=== PATIENT | female | born 1960 | race Caucasian/White ===

== ENCOUNTER → 2017-09-26 | Outpatient (CLI) | payer BC ==
[2017-09-26 15:22] LABS: ALT 78 U/L (9-52); AST 56 U/L (14-36); Albumin 3.9 g/dL (3.5-5.0); Alkaline Phosphatase 163 U/L (38-126); Anion Gap 10 mmol/L; Blood Urea Nitrogen 16 mg/dL (7-17); Calcium 9.4 mg/dL (8.4-10.2); Carbon Dioxide 25 mmol/L (22-30); Chloride 107 mmol/L (98-107); Cholesterol 208 mg/dL (<200); Creatine Kinase 88 U/L (30-135); Glucose 92 mg/dL (74-99); HDL Cholesterol 57 mg/dL (40-60); LDL Cholesterol,Calculated 128 mg/dL (0-99); Magnesium 2.1 mg/dL (1.6-2.3); Potassium 3.5 mmol/L (3.5-5.1); Sodium 142 mmol/L (137-145); Total Bilirubin 0.9 mg/dL (0.2-1.3); Total Protein 6.7 g/dL (6.3-8.2); Triglycerides 115 mg/dL (<150); Uric Acid 7.3 mg/dL (3.7-7.4)
[2017-09-26 15:38] LABS: T4, Free (Free Thyroxine) 1.28 ng/dL (0.78-2.19)
[2017-09-26 19:12] LABS: Vitamin D 25 Hydroxy 31.8 ng/mL (30.0-100.0)
[2017-09-27 12:39] LABS: Zinc, Serum 78 ug/dL (60-130)
[2017-09-28 02:27] LABS: Vitamin B1 71 ug/L (38-122)
== END ==
LOC: LABWHC1 14:47
PROVIDERS: ATTEND Family Medicine
DX: M25.571 Pain in right ankle and joints of right foot (principal); E53.9 Vitamin B deficiency, unspecified; Z98.84 Bariatric surgery status
CPT/HCPCS: 36415; 80053; 80061; 82306; 82550; 82607; 83735; 84134; 84425; 84439; 84443; 84550; 84630

== ENCOUNTER → 2017-10-10 | Outpatient (CLI) | payer BC ==
--- NOTE | 2017-10-10 23:19 | MR ---
EXAMINATION TYPE: MR foot RT wo con DATE OF EXAM: 10/10/2017 COMPARISON: NONE HISTORY: Rt foot/ankle pain, hx of injury 2 years ago Standard multiplanar, multisequence MRI departmental protocol Multiplanar, multisequence images of the right foot were acquired. FINDINGS: There is metal artifact from surgery apparently at the distal tibia and fibula. This obscur es the detail to some extent at the ankle. The metatarsals appear intact. I see no focal bone destruction involving the metatarsals. The toes ap pear intact. There is no subluxation. There is no sign of a soft tissue mass. The plantar fascia appe ars normal. The Achilles tendon appears normal. There is some spurring at the second tarsometatarsal joint. There is mild spurring at the talonavicular joint. The subtalar joint appears normal. The medi al and lateral flexor tendons of the ankle and foot appear to be intact. IMPRESSION: No fracture seen. Artifact at the ankle. Mild osteoarthritic changes in the midfoot as above.
== END | disposition home or self-care (01) ==
LOC: RADMRIMAIN 19:49
PROVIDERS: ATTEND Family Medicine
DX: M19.071 Primary osteoarthritis, right ankle and foot (principal); T84.218A Breakdown (mechanical) of internal fixation device of other bones, initial encounter

== ENCOUNTER → 2017-10-17 | Outpatient (CLI) | payer BC ==
--- NOTE | 2017-10-17 18:44 | MR ---
Right ankle MRI HISTORY: Pain Multiplanar multisequence imaging through the right ankle correlated to right foot MRI 10/09/2017 The susceptibility artifact due to patient's hardware in the ankle may limit sensitivity. Plantar apo neurosis, Achilles tendon are intact. Some mild degenerative changes are noted in the midfoot as prev iously described. Peroneal longus and brevis tendons are intact. Subcutaneous edema changes are prese nt. No evident pathologic marrow edema. Flexor and extensor tendons. To be intact. No evident effusio n. IMPRESSION: There is artifact due to patient's prior surgery at the ankle joint. Arthropathy noted in the midfoot. Subcutaneous edema. Exam is limited.
== END | disposition home or self-care (01) ==
LOC: RADMRIMAIN 10:00
PROVIDERS: ATTEND Family Medicine
DX: M12.871 Other specific arthropathies, not elsewhere classified, right ankle and foot (principal); Z98.890 Other specified postprocedural states

== ENCOUNTER 2018-05-01 09:02 | Day surgery (SDC) | payer BC ==
[2018-04-29 16:21] VITALS: BMI 44.8
[~2018-05-01 09:02] MED LIST: LACTATED RINGERS 1,000 ML IV SCH; LIDOCAINE 1% 20 ML VIAL (10MG/ML) FOR IV START INTRADERMA PRN; MIDAZOLAM 2 MG/2 ML VIAL IV PRN
[2018-05-01 09:30] VITALS: TEMP 97.8
[2018-05-01 09:30] LABS: Glucose,Whole Blood 90 mg/dL (75-99)
[2018-05-01] MEDS ORDERED: PROPOFOL 10 MG/ML 20 ML VIAL IV ONE (10:00)
[2018-05-01] MEDS ORDERED: LIDOCAINE 1% INJ 10MG/ML (20 ML MDV) ONE (10:00)
--- NOTE | 2018-05-01 10:37 | P.PCN ---
Date of Procedure: 05/01/18 Procedure(s) Performed: Brief history: Patient is a pleasant 57-year-old white female, scheduled for an elective upper endoscopy as well as colonoscopy as a part of evaluation of intermittent dysphagia to solids/long-standing history of GERD. She also scheduled for colonoscopy for screening for colorectal neoplasia. Procedure performed: Esophagogastroduodenoscopy with biopsy Colonoscopy with snare polypectomy and hot biopsy Preoperative diagnosis: GERD/intermittent dysphagia Screening for colon cancer Anesthesia: MAC Procedure: After informed consent was obtained from the patient was brought into the endoscopy unit and IV sedation was administered by anesthesia under continuous monitoring. Initially upper endoscopy was done. The Olympus GF 160 video endoscope was inserted inserted into the mouth and esophagus intubated without any difficulty and was gradually advanced into the stomach and duodenum and carefully examined. The bulb and second part of the duodenum appeared normal. The scope was then withdrawn into the stomach adequately insufflated with air and upon careful examination the antrum had mild gastritis and biopsies were done from this area. The body, cardia and fundus appeared normal. there was evidence of gastric sleeve surgery noted. The scope was then withdrawn into the esophagus. The GE junction was located at 34 cm to the incisors. It appeared regular with no erythema erosions or ulcerations. Rest of the esophagus appeared normal. biopsies were done from the distal esophagus.Patient tolerated the procedure well. At this time the patient continued to remain sedation. Initial digital rectal examination was normal. Olympus CF 160 video colonoscope was then inserted into the rectum and gradually advanced to the cecum without any difficulty. Careful examination was performed as the scope was gradually being withdrawn. The prep was fair. The cecum, ascending colon, appeared normal. In the transverse colon there was a 1 segment of broad-based polyp that was removed by snare polypectomy. Adjacent to this area there was another 1 cm flat polyp that could not be removed by snare polypectomy. Multiple attempts. Instead removed with hot biopsy. Rest of the transverse colon, descending colon, sigmoid colon and rectum appeared normal. Retroflexion was performed in the rectum and no lesions were noted. Patient tolerated the procedure well. Impression: 1. Upper endoscopy revealed evidence of gastric sleeve surgery, mild antral gastritis but no evidence of esophageal stricture 2. Colonoscopy revealed 1 cm broad-based polyp in the transverse colon status post snare polypectomy and another 1 cm flat polyp status post removal with hot biopsy. Recommendations: Findings of this examination were discussed with the patient as well as her family. She was advised to follow with the biopsy results. If the biopsy of the colon polyps are tubular adenoma, she can have a repeat colonoscopy in 3 years.
[2018-05-01 10:46] VITALS: RESP 18
[2018-05-01 11:08] VITALS: BP 129/80; PULSE 56
== END 2018-05-01 12:05 | disposition home or self-care (01) ==
LOC: ORWHC2ENDO 09:02
PROVIDERS: ATTEND Internal Medicine Gastroenterology
DX: Z12.11 Encounter for screening for malignant neoplasm of colon (principal); K21.9 Gastro-esophageal reflux disease without esophagitis; K29.70 Gastritis, unspecified, without bleeding; K63.5 Polyp of colon; G47.33 Obstructive sleep apnea (adult) (pediatric); Z79.899 Other long term (current) drug therapy; Z88.1 Allergy status to other antibiotic agents; Z79.01 Long term (current) use of anticoagulants
CPT/HCPCS: 88305; 45384; 45385; 43239; J2001; J2704

== ENCOUNTER → 2018-06-26 | Outpatient (CLI) | payer BC ==
--- NOTE | 2018-06-30 07:03 | MM ---
Reason for exam: screening (asymptomatic). Last mammogram was performed 3 years and 6 months ago. History: Family history of breast cancer in maternal grandmother. Physical Findings: A clinical breast exam by your physician is recommended on an annual basis and results should be correlated with mammographic findings. MG Screening Mammo w CAD Bilateral CC and MLO view(s) were taken. Prior study comparison: December 30, 2014, bilateral MG screening mammo w CAD. May 17, 2011, bilateral digital screening mammo w/CAD. There are scattered fibroglandular densities. There is no discrete abnormality. No significant changes when compared with prior studies. ASSESSMENT: Negative, BI-RAD 1 RECOMMENDATION: Routine screening mammogram of both breasts in 1 year.
== END | disposition home or self-care (01) ==
LOC: RADMAMWWP 12:55
PROVIDERS: ATTEND Family Medicine
DX: Z12.31 Encounter for screening mammogram for malignant neoplasm of breast (principal)
CPT/HCPCS: 77067

== ENCOUNTER → 2018-06-26 | Outpatient (CLI) | payer BC ==
--- NOTE | 2018-06-26 10:12 | FL ---
EXAMINATION TYPE: FL barium swallow DATE OF EXAM: 06/26/2018 CLINICAL HISTORY: R13.12 Dysphagia Comparison 02/03/2014 1 min 17 sec fluoro The patient ingested contrast without difficulty or delay. Noted are postsurgical changes of gastric sleeve. There is no evidence for leak or obstruction. Contrast is noted within the duodenum. S mall sliding-type hiatal hernia noted. IMPRESSION: Post-surgical change of gastric sleeve without evidence for obstruction or leak at this point in time. Small sliding-type hiatal hernia noted.
== END | disposition home or self-care (01) ==
LOC: RADFLWHC 09:27
PROVIDERS: ATTEND Family Medicine
DX: K44.9 Diaphragmatic hernia without obstruction or gangrene (principal)
CPT/HCPCS: 74220

== ENCOUNTER → 2018-07-31 | Outpatient (CLI) | payer BC ==
--- NOTE | 2018-07-31 09:45 | CT ---
EXAMINATION TYPE: CT chest w con DATE OF EXAM: 07/31/2018 COMPARISON: Barium swallow study June 26, 2018 HISTORY: Dysphagia, extrinsic compressive mass CT DLP: 710 mGycm. Automated Exposure Control for Dose Reduction was Utilized. TECHNIQUE: CT scan of the thorax is performed following with IV Contrast, patient injected with 100 ml mL of Isovue 300. FINDINGS: LUNGS: Some patchy linear atelectasis in the left lung base is present. No suspicious consolidation i s seen. No pleural effusion or pneumothorax is noted bilaterally. Tracheobronchial tree is patent. MEDIASTINUM: There are no greater than 1 cm hilar or mediastinal lymph nodes. No cardiomegaly or pe ricardial effusion is seen. Main pulmonary artery measures 3.6 cm in diameter bifurcation axial imag e 19. CT findings consistent with underlying pulmonary artery hypertension. Adjacent ascending aorta measures 4.0 x 3.7 cm though is felt slightly exaggerated by pulsation artifact on this image. There is fairly moderate size hiatal hernia. Linear density suspicious for sutures from gastric sleeve are seen along the periphery of the herniated stomach extending below diaphragm into more distal stomach, proximal to this esophagus felt within normal limits without suspicious adjacent mass. OTHER: Mild multilevel spurring in the thoracic spine is present. IMPRESSION: There is more moderate size hiatal hernia identified on CT versus recent esophagram, post operative gastric sleeve is seen both above and below diaphragm extending through hernia defect.
== END | disposition home or self-care (01) ==
LOC: RADCTMAIN 08:05
PROVIDERS: ATTEND Family Medicine
DX: K44.9 Diaphragmatic hernia without obstruction or gangrene (principal); Z98.84 Bariatric surgery status
CPT/HCPCS: 82565; 84520; 71260; 36415; Q9967

== ENCOUNTER → 2018-08-28 | Outpatient (CLI) | payer BC ==
--- NOTE | 2018-08-28 12:06 | MR ---
EXAMINATION TYPE: MR brain wo/w con DATE OF EXAM: 08/28/2018 COMPARISON: None HISTORY: Spasm,MS TECHNIQUE: Multiplanar, multisequence images of the brain and brainstem is performed without and with IV contras t, utilizing 14 mL intravenous Gadavist . FINDINGS: Diffusion weighted images demonstrate no evidence of a recent infarct or other diffusion ab normality. There is no extra-axial fluid collection. Scattered hyperintensities present within the d eep, juxtacortical, periventricular white matter on inversion recovery T2-weighted sequences. Approxi mately 5 lesions are present, the largest is on sagittal image 12, axial image 27 measuring 7 mm in g reatest dimension. The ventricular system and cisternal spaces are normal in size and appearance. T he brain volume is age appropriate. Midline structures demonstrate normal morphology. The craniocervical junction appears within normal limits. Post contrast images demonstrate no abnormal enhancement. The dural venous sinuses appear pa tent. The visualized sinuses are remarkable for mucosal thickening in ethmoid air cells, and the glob es are intact. IMPRESSION: Nonspecific white matter demyelination, differential includes multiple sclerosis, migrain e headaches, hypertension, vasculitis, Lyme disease.
== END | disposition home or self-care (01) ==
LOC: RADMRIMAIN 09:06
PROVIDERS: ATTEND Family Medicine
DX: G35 Multiple sclerosis (principal); G37.9 Demyelinating disease of central nervous system, unspecified; I10 Essential (primary) hypertension; I77.6 Arteritis, unspecified; A69.20 Lyme disease, unspecified
CPT/HCPCS: 70553; A9585

== ENCOUNTER 2019-02-16 18:25 | Emergency (ER) | payer BC ==
[2019-02-16 19:49] VITALS: RESP 18; TEMP 98.2
--- NOTE | 2019-02-16 20:17 | ED ---
General Adult HPI - General Chief complaint: Fall Stated complaint: fall Time Seen by Provider: 02/16/19 20:02 Source: patient Mode of arrival: ambulatory Limitations: no limitations - History of Present Illness Initial comments: Dictation was produced using [employer] dictation software. please excuse any grammatical, word or spelling errors. Chief Complaint: 58-year-old female presents with right knee pain. History of Present Illness: This is 8-year-old female she was walking prior garage at home yesterday. She states she tripped on some drywall that her left out of the garage. She fell from a standing position down to her right knee. Patient states she is able to area after the incident. She woke this morning set felt like her pain was slightly worse. She is on Xarelto for history of factor V Leiden deficiency. Patient with some bruising to the anterior right knee. The ROS documented in this emergency department record has been reviewed and confirmed by me. Those systems with pertinent positive or negative responses have been documented in the HPI. All other systems are other negative and/or noncontributory. PHYSICAL EXAM: General Impression: Alert and oriented x3, not in acute distress HEENT: Normocephalic atraumatic, extra-ocular movements intact, pupils equal and reactive to light bilaterally, mucous membranes moist. Cardiovascular: Heart regular rate and rhythm, S1&S2 audible, no murmurs, rubs or gallops Chest: Lungs clear to auscultation bilaterally, no rhonchi, no wheeze, no rales Abdomen: Bowel sounds present, abdomen soft, non-tender, non-distended, no organomegaly Musculoskeletal: Pulses present and equal in all extremities, no peripheral edema, right knee is ranged without any significant complications. There is slight tenderness to palpation over the anterior tib-fib proximally. Motor: no focal deficits noted Neurological: CN II-XII grossly intact, no focal motor or sensory deficits noted Skin: Slight ecchymoses to the right anterior tib proximally Psych: Normal affect and mood ED course: 58-year-old female with right knee contusion. Patient does have some ecchymoses. She is able to tolerate bearing weight on that right lower extremity. He is ranged without significant complications. Vital signs upon arrival are within acceptable limits. X-rays obtained showing no acute processes. Patient given by mouth analgesia. X-ray does not show any subcu findings. Furthermore, patient is ambulatory with minimal complications. Patient told to rest. Counseled on rice therapy. Patient placed in Rivas wrap to prevent any further swelling. Advised to follow- up with PCP upon discharge. Patient understandable agreeable to disposition. Return parameters discussed. - Related Data Home Medications Medication Instructions Recorded Confirmed Cholecalciferol [Vitamin D3] 1,000 unit PO HS 06/17/14 02/16/19 Rivaroxaban [Xarelto] 20 mg PO HS 06/17/14 02/16/19 Furosemide [Lasix] 20 tab PO HS 11/11/14 02/16/19 Cyanocobalamin [Vitamin B-12] 500 mcg PO HS 04/29/18 02/16/19 Escitalopram [Lexapro] 20 mg PO HS 04/29/18 02/16/19 Gabapentin [Neurontin] 800 mg PO HS 04/29/18 02/16/19 Gabapentin [Neurontin] 300 mg PO TID 02/16/19 02/16/19 Lansoprazole 30 mg PO HS 02/16/19 02/16/19 Potassium Chloride [Klor-Con 20] 20 meq PO HS 02/16/19 02/16/19 Previous Rx's Medication Instructions Recorded HYDROcodone/APAP 5-325MG [[place] 1 tab PO Q6HR PRN 3 Days #12 tab 02/16/19 5-325] Allergies Allergy/AdvReac Type Severity Reaction Status Date / Time ciprofloxacin [From Cipro] Allergy Dyspnea Verified 02/16/19 20:08 ciprofloxacin HCl AdvReac Dyspnea Verified 02/16/19 20:08 [From Cipro] Review of Systems ROS Statement: Those systems with pertinent positive or pertinent negative responses have been documented in the HPI. ROS Other: All systems not noted in ROS Statement are negative. Past Medical History Past Medical History: Deep Vein Thrombosis (DVT), GERD/Reflux, Sleep Apnea/CPAP/BIPAP Additional Past Medical History / Comment(s): factor V leiden, DVT Right leg ,hypoglycemia History of Any Multi-Drug Resistant Organisms: None Reported Past Surgical History: Bariatric Surgery, Hysterectomy, Orthopedic Surgery, Tons illectomy Additional Past Surgical History / Comment(s): LAPROSCOPIC SLEEVE 02-02-14,ORIF rt ankle Past Anesthesia/Blood Transfusion Reactions: Family History of Problems w/ Anesthesia, Postoperative Nausea & Vomiting (PONV) Additional Past Anesthesia/Blood Transfusion Reaction / Comment(s): mother has difficulty waking up with anesthesia Past Psychological History: No Psychological Hx Reported Smoking Status: Never smoker - Past Family History Mother Family Medical History: Blood Disorder Additional Family Medical History / Comment(s): Is a history of obesity and patient's mother and 2 sisters. She has one brother who at 24 years of age after having a lumbar puncture done and developed infection. There are family members with history of cancer including a grandmother with breast cancer, grandfather with lung and brain cancer, an aunt with colon cancer with metastatic disease. Father Family Medical History: Coronary Artery Disease (CAD), Diabetes Mellitus General Exam Limitations: no limitations Course Vital Signs 02/16/19 19:46 Temperature 98.2 F Pulse Rate 75 Respiratory 18 Rate Blood Pressure 161/85 O2 Sat by Pulse 99 Oximetry Disposition Clinical Impression: Knee contusion Disposition: HOME SELF-CARE Condition: Good Instructions (If sedation given, give patient instructions): Fall Prevention for Older Adults (ED), Knee Pain (ED) Prescriptions: HYDROcodone/APAP 5-325MG [[place] 5-325] 1 tab PO Q6HR PRN 3 Days #12 tab PRN Reason: Severe Pain Is patient prescribed a controlled substance at d/c from ED?: Yes If prescribed controlled substance>3 days was MAPS reviewed?: Prescribed <3 Days Referrals: Mignon Ernst MD [Primary Care Provider] - 1-2 days Time of Disposition: 22:00
--- NOTE | 2019-02-16 20:40 | XR ---
EXAMINATION TYPE: XR knee complete RT DATE OF EXAM: 02/16/2019 COMPARISON: NONE HISTORY: 58-year-old female with a pain, swelling, and bruising after fall TECHNIQUE: 3 views FINDINGS: Limitations due to large patient body habitus. Extensor mechanism appears intact. There may be a trac e infrapatellar joint effusion. Degenerative change of patellofemoral compartment with joint space na rrowing noted on the lateral view. No acute fracture, subluxation, or dislocation seen. Degenerative spurring in the medial compartment. IMPRESSION: 1. Nonspecific trace knee joint effusion. 2. Medial and patellofemoral compartmental osteoarthrosis. 3. No acute osseous abnormality seen. If concern for internal derangement, MRI can be performed.
[2019-02-16] MEDS ORDERED: HYDROcodone/APAP 5-325MG 1 EACH TAB PO STA (21:14)
[2019-02-16 22:10] VITALS: BP 152/78; PULSE 70
== END 2019-02-16 22:05 | disposition home or self-care (01) ==
LOC: EC 18:25
DX: S80.01XA Contusion of right knee, initial encounter (principal); K21.9 Gastro-esophageal reflux disease without esophagitis; G47.30 Sleep apnea, unspecified; Z79.01 Long term (current) use of anticoagulants; Z79.899 Other long term (current) drug therapy; Z88.1 Allergy status to other antibiotic agents; Z86.718 Personal history of other venous thrombosis and embolism; Z98.84 Bariatric surgery status; W01.0XXA Fall on same level from slipping, tripping and stumbling without subsequent striking against object, initial encounter; Y93.01 Activity, walking, marching and hiking; Y92.008 Other place in unspecified non-institutional (private) residence as the place of occurrence of the external cause
CPT/HCPCS: 99283

== ENCOUNTER 2021-05-10 15:36 | Emergency (ER) | payer BC ==
[2021-05-10 16:45] VITALS: TEMP 98.2
--- NOTE | 2021-05-10 17:47 | US ---
EXAMINATION TYPE: US venous doppler duplex LE BI DATE OF EXAM: 05/10/2021 5:36 PM COMPARISON: NONE CLINICAL HISTORY: pain bilat extremities, history dvt per patient. SIDE PERFORMED: Bilateral TECHNIQUE: The lower extremity deep venous system is examined utilizing real time linear array sonog vanessa with graded compression, doppler sonography and color-flow sonography. VESSELS IMAGED: Common Femoral Vein Deep Femoral Vein Greater Saphenous Vein * Femoral Vein Popliteal Vein Small Saphenous Vein * Proximal Calf Veins (* superficial vessels) Right Leg: Negative for DVT Left Leg: Negative for DVT IMPRESSION: No evidence of deep vein thrombosis in both legs.
--- NOTE | 2021-05-10 19:25 | ED ---
General Adult HPI - General Chief complaint: Extremity Problem,Nontraumatic Stated complaint: Leg Pain Time Seen by Provider: 05/10/21 19:08 Source: patient Mode of arrival: ambulatory Limitations: no limitations - History of Present Illness Initial comments: 60-year-old female presents to the emergency room for a chief complaint of bilateral leg pain. Patient states she has pain behind her right knee and in the flexor aspect of the left hip. States this started 5 days ago. Patient states prior to that she had been off of her anticoagulant Xarelto for 5 days due to an insurance issue. Because of this she wanted to make sure they were not blood clots. She states her legs are a little more swollen than normal. Denies shortness of breath.Patient has no other complaints at this time including shortness of breath, chest pain, abdominal pain, nausea or vomiting, headache, or visual changes. - Related Data Home Medications Medication Instructions Recorded Confirmed Cholecalciferol [Vitamin D3] 1,000 unit PO HS 06/17/14 02/16/19 Rivaroxaban [Xarelto] 20 mg PO HS 06/17/14 02/16/19 Furosemide [Lasix] 20 tab PO HS 11/11/14 02/16/19 Cyanocobalamin [Vitamin B-12] 500 mcg PO HS 04/29/18 02/16/19 Escitalopram [Lexapro] 20 mg PO HS 04/29/18 02/16/19 Gabapentin [Neurontin] 800 mg PO HS 04/29/18 02/16/19 Gabapentin [Neurontin] 300 mg PO TID 02/16/19 02/16/19 Lansoprazole 30 mg PO HS 02/16/19 02/16/19 Potassium Chloride [Klor-Con 20] 20 meq PO HS 02/16/19 02/16/19 Previous Rx's Medication Instructions Recorded HYDROcodone/APAP 5-325MG [[place] 1 tab PO Q6HR PRN 3 Days #12 tab 02/16/19 5-325] Allergies Allergy/AdvReac Type Severity Reaction Status Date / Time ciprofloxacin [From Cipro] Allergy Dyspnea Verified 05/10/21 16:43 ciprofloxacin HCl AdvReac Dyspnea Verified 05/10/21 16:43 [From Cipro] Review of Systems ROS Statement: Those systems with pertinent positive or pertinent negative responses have been documented in the HPI. ROS Other: All systems not noted in ROS Statement are negative. Past Medical History Past Medical History: Deep Vein Thrombosis (DVT), GERD/Reflux, Sleep Apnea/CPAP /BIPAP Additional Past Medical History / Comment(s): factor V leiden, DVT Right leg 2013,hypoglycemia History of Any Multi-Drug Resistant Organisms: None Reported Past Surgical History: Bariatric Surgery, Hysterectomy, Orthopedic Surgery, Tonsillectomy Additional Past Surgical History / Comment(s): LAPROSCOPIC SLEEVE 02-02-14,ORIF rt ankle Past Anesthesia/Blood Transfusion Reactions: Family History of Problems w/ Anesthesia, Postoperative Nausea & Vomiting (PONV) Additional Past Anesthesia/Blood Transfusion Reaction / Comment(s): mother has difficulty waking up with anesthesia Past Psychological History: Anxiety Smoking Status: Never smoker Past Alcohol Use History: None Reported Past Drug Use History: None Reported - Past Family History Mother Family Medical History: Blood Disorder Additional Family Medical History / Comment(s): Is a history of obesity and patient's mother and 2 sisters. She has one brother who at 24 years of age after having a lumbar puncture done and developed infection. There are family members with history of cancer including a grandmother with breast cancer, grandfather with lung and brain cancer, an aunt with colon cancer with metastatic disease. Father Family Medical History: Coronary Artery Disease (CAD), Diabetes Mellitus General Exam Limitations: no limitations General appearance: alert, in no apparent distress Head exam: Present: atraumatic Eye exam: Present: normal appearance, PERRL, EOMI. Absent: scleral icterus, conjunctival injection ENT exam: Present: normal exam, mucous membranes moist Neck exam: Present: normal inspection, full ROM. Absent: tenderness Respiratory exam: Present: normal lung sounds bilaterally. Absent: respiratory distress, wheezes Cardiovascular Exam: Present: regular rate, normal rhythm, normal heart sounds GI/Abdominal exam: Present: soft. Absent: distended, tenderness Extremities exam: Present: normal capillary refill (Capillary refill less than 2 seconds, DP pulse 2+ bilateral lower extremities), calf tenderness (Minimal right-sided calf tenderness. No left-sided Tenderness.). Absent: pedal edema (No pitting edema of the bilateral lower extremities) Course Vital Signs 05/10/21 16:43 Temperature 98.2 F Pulse Rate 68 Respiratory 20 Rate Blood Pressure 136/87 O2 Sat by Pulse 98 Oximetry Medical Decision Making - Medical Decision Making Ultrasound of the bilateral lower extremities are negative for DVT. Patient is not having any any chest pain or shortness of breath. There is no pitting edema of the lower extremities. At this time I recommended compression stockings and follow up with primary care closely. She will return here for any worsening symptoms. She is currently taking her anticoagulant. Disposition Clinical Impression: Bilateral leg pain Disposition: HOME SELF-CARE Condition: Good Instructions (If sedation given, give patient instructions): Leg Pain (ED) Additional Instructions: Please use compression stockings and keep legs elevated. Follow-up with primary care. Return to the emergency room for any worsening symptoms. Is patient prescribed a controlled substance at d/c from ED?: No Referrals: Nico Ceja DO [Primary Care Provider] - 1-2 days Time of Disposition: 19:24
[2021-05-10 19:43] VITALS: BP 136/94; PULSE 64; RESP 18
== END 2021-05-10 19:49 | disposition home or self-care (01) ==
LOC: EC 15:36
DX: M79.604 Pain in right leg (principal); M79.605 Pain in left leg; K21.9 Gastro-esophageal reflux disease without esophagitis; F41.9 Anxiety disorder, unspecified; Z88.1 Allergy status to other antibiotic agents; Z86.718 Personal history of other venous thrombosis and embolism; Z98.84 Bariatric surgery status; Z90.710 Acquired absence of both cervix and uterus; Z90.89 Acquired absence of other organs
CPT/HCPCS: 93970; 99284

== ENCOUNTER → 2021-05-12 | Outpatient (CLI) | payer BC ==
[2021-05-12 08:04] LABS: INR 1.1 (<1.2); Prothrombin Time 11.6 sec (9.0-12.0)
[2021-05-12 11:22] LABS: Basophils # (A) 0.05 X 10*3/uL (0.00-0.10); Basophils % (A) 1.1 %; Eosinophils # (A) 0.13 X 10*3/uL (0.04-0.35); Eosinophils % (A) 2.7 %; HCT 41.5 % (37.2-46.3); HGB 12.9 g/dL (12.0-15.0); Lymphocytes # (A) 1.38 X 10*3/uL (0.90-5.00); Lymphocytes % (A) 29.2 %; MCH 25.1 pg (27.0-32.0); MCHC 31.1 g/dL (32.0-37.0); MCV 80.9 fL (80.0-97.0); Mean Platelet Volume 11.1 fL (9.5-12.2); Monocytes % (A) 8.5 %; Neutrophils # (A) 2.76 X 10*3/uL (1.80-7.70); Neutrophils % (A) 58.3 %; Platelet Count 287 X 10*3/uL (140-440); RBC 5.13 X 10*6/uL (4.10-5.20); RDW 21.7 % (11.5-14.5); WBC 4.73 X 10*3/uL (4.50-10.00)
[2021-05-12 20:11] LABS: African American GFR (CKD) 83.6 (60.0-200.0); Albumin 3.8 g/dL (3.8-4.9); Albumin/Globulin Ratio 1.76 (1.60-3.17); Anion Gap 16.5 mmol/L (4.00-12.00); BUN/Creat Ratio 18.46 Ratio (12.00-20.00); Blood Urea Nitrogen 16.3 mg/dL (9.0-27.0); Carbon Dioxide 14.8 mmol/L (21.6-31.8); Globulin 2.2 g/dL (1.6-3.3); Non-African American GFR(CKD) 72.1 (60.0-200.0); Potassium 4.5 mmol/L (3.5-5.5); Total Bilirubin 0.2 mg/dL (0.30-1.20)
== END | disposition home or self-care (01) ==
LOC: LABWHC1 07:09
PROVIDERS: ATTEND Family Medicine
DX: Z01.812 Encounter for preprocedural laboratory examination (principal); D68.51 Activated protein C resistance
CPT/HCPCS: 36415; 80053; 83036; 85025; 85379; 85610; 85730

== ENCOUNTER → 2023-01-28 | Outpatient (CLI) | payer BC ==
--- NOTE | 2023-01-28 12:43 | MR ---
EXAMINATION TYPE: MR brain wo con DATE OF EXAM: 01/28/2023 12:27 PM COMPARISON: 08/28/2018 HISTORY: White matter disease FINDINGS: The ventricles, basal cisterns and sulci overlying the cerebral convexities are mildly enlarged. There is evidence of mild periventricular white matter ischemic demyelination. Remote deep white matter insults are also noted. No acute edema is seen on diffusion weighted imaging. There is no evidence for midline shift or mass effect. Acute intracranial hemorrhage or extra-axial collection is not evident. The paranasal sinuses and mastoid air cells are well-aerated. IMPRESSION: Age-related atrophic and chronic small vessel ischemic change. No acute intracranial process at this time.
== END | disposition home or self-care (01) ==
LOC: RADMRIMAIN 11:39
PROVIDERS: ATTEND Family Medicine
DX: I67.82 Cerebral ischemia (principal); N26.1 Atrophy of kidney (terminal); R90.82 White matter disease, unspecified
CPT/HCPCS: 70551

== ENCOUNTER → 2024-10-30 | Day surgery (SDC) | payer BC ==
[2024-10-28 12:02] VITALS: BMI 40.6
[~2024-10-30] MED LIST changes: +HYDROmorphone 0.5 MG/0.5 ML SYRINGE IVP PRN; +KETAMINE HCL IN 0.9 % NACL 50 MG/5 ML SYRINGE ONE; -LACTATED RINGERS 1,000 ML IV SCH; +LIDOCAINE 1% (10MG/ML) FOR IV START INTRADERMA PRN; -LIDOCAINE 1% 20 ML VIAL (10MG/ML) FOR IV START INTRADERMA PRN; +MIDAZOLAM 2 MG/2 ML VIAL ONE; +fentaNYL (PF) 50 MCG/ML 2 ML AMP IVP PRN; +fentaNYL (PF) 50 MCG/ML 2 ML AMP ONE
[2024-10-30] MEDS: IV FLUID CONTINUATION 1,000 ML IV ONE (08:50)
[2024-10-30 09:11] LABS: Glucose,Whole Blood 84 mg/dL (70-110)
[2024-10-30] MEDS: DEXAMETHASONE SOD PHOSPHATE 4 MG/ML 1 ML VIAL IV ONE (09:13)
[2024-10-30] MEDS: LACTATED RINGERS 1,000 ML IV SCH (09:14)
[2024-10-30 09:26] VITALS: TEMP 98
[2024-10-30] MEDS: ONDANSETRON 4 MG/2 ML VIAL IVP ONE ×2 (09:28→11:20)
[2024-10-30] MEDS: ceFAZolin 3 GM in SODIUM CHLORIDE 0.9% 100 ML IVPB PRN (10:32)
[2024-10-30] MEDS: BUPIVACAINE (PF) 0.25% 30 ML VIAL SQ ONE ×2 (10:49)
[2024-10-30] MEDS: ceFAZolin 1,000 MG in SODIUM CHLORIDE 0.9% 1,000 ML IRRIGATION ONE (10:50)
[2024-10-30 11:23] VITALS: RESP 16
[2024-10-30 11:41] VITALS: BP 116/77; PULSE 68
--- NOTE | 2024-10-30 12:28 | P.OP ---
Date of Procedure: 10/30/24 Preoperative Diagnosis: Painful retained hardware right ankle Postoperative Diagnosis: Same Procedure(s) Performed: Removal of deep hardware right ankle Implants: None Anesthesia: KANDY HOLLOWAY, local Surgeon: Tho Chavez Estimated Blood Loss (ml): 5 Pathology: none sent Condition: stable Disposition: PACU Description of Procedure: The patient was brought into the op room and placed on table in supine position. Timeout was taken to confirm correct patient identifiers, correct laterality of surgery, and correct procedure. Once all staff in the room was in agreement with the timeout, the patient is was placed under IV sedation anesthesia. 0.25% Marcaine was injected over the surgical site. The foot was prepped and draped in usual manner. The foot was exsanguinated with an Esmarch bandage and that same bandage was left in place over the ankle for hemostasis. Under fluoroscopic visualization the exact location of the screw was identified. A small stab incision was made through the skin and was bluntly dissected down to the head of the screw which was readily palpable. The screwdriver was inserted and engage the screw. The screw was backed out intact and without complication. The wound was thoroughly irrigated with antibiotic saline. A single 4-0 Monocryl was used to close the subcutaneous layer. Dermal glue was then used to close the skin and once that was dry, Steri-Strips were applied. An OpSite was placed over the surgical site. The Esmarch was released and capillary refill returned all digits on the foot. The patient tolerated above procedure and anesthesia well. The patient left the operating room to recovery vital signs stable
== END | disposition home or self-care (01) ==
LOC: OR 08:28
PROVIDERS: ATTEND Podiatrist
DX: T84.84XA Pain due to internal orthopedic prosthetic devices, implants and grafts, initial encounter (principal); E66.01 Morbid (severe) obesity due to excess calories; Z88.1 Allergy status to other antibiotic agents; Z88.8 Allergy status to other drugs, medicaments and biological substances; Z79.01 Long term (current) use of anticoagulants; Z79.899 Other long term (current) drug therapy; Y83.8 Other surgical procedures as the cause of abnormal reaction of the patient, or of later complication, without mention of misadventure at the time of the procedure
CPT/HCPCS: 20680; J2250; J1100; J0690 ×2; J2405; J3010; J0665